=== PATIENT | male | born 1985 | race Hispanic/Latino ===

== ENCOUNTER 2018-09-24 13:26 | Outpatient (CLI) | payer SELFPAY ==
--- NOTE | 2018-09-24 14:01 | RAD ---
Exam: One view pelvis HISTORY: Pain. FINDINGS: Sacroiliac joints are patent and symmetric. Contour of both femoral heads are maintained. S ymmetric hip joint space is Intact. IMPRESSION: Unremarkable AP pelvic radiograph.
--- NOTE | 2018-09-24 14:02 | RAD ---
Exam:4 views right knee HISTORY: Pain. COMPARISON: None FINDINGS: No joint effusion. No fracture. No malalignment. Joint spaces are preserved IMPRESSION: Unremarkable right knee radiograph series.
--- NOTE | 2018-09-24 14:11 | RAD ---
Exam: 3 views thoracic spine HISTORY: Evaluate for scoliosis FINDINGS: AP, and 2 lateral views of the thoracic spine submitted for interpretation. There is leftward curvature of the thoracic spine with the apex at approximately T10-T11 level. There is 18 degrees of leftward curvature. 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 There are no evidence of fractur e or significant loss of disc space height IMPRESSION: Leftward curvature of the thoracic spine with apex at T10-T11. 18 degrees of leftward cur vature.
--- NOTE | 2018-09-24 14:12 | RAD ---
Exam: 2 views lumbar spine HISTORY: Scoliosis FINDINGS: There is leftward curvature of the thoracic spine centered at the T10-T11 level. Refer to s eparate thoracic spine radiograph report for further detail There 5 lumbar type vertebral bodies with sacralization of L5. Lumbar spine vertebral body height is maintained. IMPRESSION: Leftward curvature of the thoracic spine as detailed in separate thoracic spine report.
== END 2018-09-24 13:27 | disposition home or self-care (01) ==
LOC: RAD 13:26
PROVIDERS: ATTEND Nurse Practitioner Family
DX: M25.561 Pain in right knee (principal); M41.9 Scoliosis, unspecified; M43.9 Deforming dorsopathy, unspecified
CPT/HCPCS: 72070; 72100; 72170